=== PATIENT | male | born 1970 | race Two or more races ===

== ENCOUNTER 2016-04-22 15:38 | Emergency (ER) | payer OTHER ==
[2016-04-22 15:54] VITALS: RESP 16; TEMP 97.3; O2SAT 95
--- NOTE | 2016-04-22 15:56 | EDPHY ---
H & P Stated Complaint: CP STARTING THIS am Time Seen by Provider: 04/22/16 15:56 - Personal History Current Tetanus Diphtheria and Acellular Pertussis (TDAP): No - Medical/Surgical History Hx Asthma: No Hx Chronic Respiratory Disease: No Hx Diabetes: No Hx Cardiac Disease: No Hx Renal Disease: No Hx Cirrhosis: No Hx Alcoholism: No Hx HIV/AIDS: No Hx Splenectomy or Spleen Trauma: No Other PMH: HTN - Social History Smoking Status: Current some day smoker Constitutional: Initial Vital Signs Temperature (C) 36.3 C 04/22/16 15:52 Heart Rate 84 04/22/16 15:52 Respiratory Rate 16 04/22/16 15:52 Blood Pressure 151/89 H 04/22/16 15:52 O2 Sat (%) 95 04/22/16 15:52 O2 Delivery Mode Room Air Allergies/Adverse Reactions: No Known Allergies Allergy (Unverified 01/02/15 00:13) Home Medications: Medication Instructions Recorded Bp Med 04/22/16 Medical Decision Making ED Course/Re-evaluation: CHIEF COMPLAINT: Chest pain HISTORY OF PRESENT ILLNESS: This patient is a 45 year old male who was referred to the Emergency Department by his primary care provider, Dr. Jacques, for acute chest pain beginning when he awoke this morning. He describes his pain as centralized, "hot and achy," and gradually increasing in severity over time. He describes feeling generally uncomfortable but denies lightheadedness, nausea, shortness of breath, or any additional complaints. He describes one prior episode of similar pain over one year ago where he was worked up here in this facility; he reports normal testing at that time and has not had any additional cardiac testing. Denies any pertinent medical history. The patient speaks [place]ian conversationally; specific details difficult to interpret given mild language barrier. REVIEW OF SYSTEMS: A 10 point review of systems was performed and is negative with the exception of the elements mentioned in the history of present illness. PHYSICAL EXAM: HR 84, BP 151/89, O2 Sat 95, RR 16. Temp noted General Appearance: Alert, well hydrated, appropriate, and non-toxic appearing. Head: Atraumatic without scalp tenderness or obvious injury Eyes: Pupils equal, round, reactive to light and accommodation, EOMI, no trauma , no injection. Ears: Clear bilaterally, no perforation, normal landmarks Nose: Atraumatic, no rhinorrhea, clear. Throat: There is no erythema or exudates, no lesions, normal tonsils, mucus membranes moist. Neck: Supple, 2+ carotid upstroke, nontender, no lymphadenopathy. Respiratory: No retractions, no distress, no wheezes, and no accessory muscle use. Lungs are clear to auscultation bilaterally. Cardiovascular: Regular rate and rhythm, no murmurs, rubs, or gallops. Bilateral carotid, radial, dorsalis pedis, and posterior tibial pulses intact. Good capillary refill all extremities. Gastrointestinal: Abdomen is soft, nontender, non-distended, no masses, no rebound, no guarding, no peritoneal signs. Musculoskeletal: Normal active ROM of all extremities, atraumatic. Neurological: Alert, appropriate, and interactive. The patient has normal DTRs and non-focal cranial nerves, motor, sensory, and cerebellar exam. Skin: No rashes, good turgor, no nodules on palpation. Past medical history: Denies. Family history: Hypertension in family; no diabetes, no CAD. Social history: Smoked 3-4 cigarettes daily. DIAGNOSTICS/PROCEDURES/CRITICAL CARE TIME: EKG INTERPRETATION: The 12 lead EKG was interpreted by myself: Sinus rhythm, rate 89. No ischemic changes. See hard copy and/or "tracemaster" electronic copy for interpretation. CHEST X-RAY: Study: X-ray of the chest Indication: Chest pain Results: X-ray of the chest was obtained. The results of the study are: normal. The study was read by the radiologist, Dr. Kel Feliz. I viewed the images myself on the PACS system. DIFFERENTIAL DIAGNOSIS: The differential diagnosis for the patient's chest pain included but was not limited to myocardial ischemia, pulmonary embolus, chest wall pain, pleural inflammation, and pulmonary infectious causes. MEDICAL DECISION MAKING: This patient is a 45 year old male without any significant medical history who presents complaining of centralized chest pain beginning when he awoke this morning and increasing in severity over time. Risk factors for cardiac etiology include daily smoking and hypertension in family; it is unclear if there is CAD in family. He reports no associated factors; denies dyspnea, diaphoresis, nausea , or pain radiation. Will proceed with full cardiac work-up, including EKG, chest x-ray, and labs including Troponin. 1603: 324mg PO Asprin administered. 1700: EKG is normal. Labs are within normal ranges; Troponin and D-dimer are both negative. Given the duration of the patient's symptoms, his Troponin is sensitive at this time. Chest x-ray is normal. I discussed these results with the patient. 1719: PO Gi Cocktail administered to address possible reflux. 1750: On reevaluation, the patient is feeling much better. His symptoms resolved immediately following the Gi Cocktail administration. Given this, my recommendation is that he is discharged home with strict return precautions as well as instructions to follow-up with his PCP to address GERD treatment. The patient expresses understands and is amenable to this plan. - Data Points Laboratory Results: Laboratory Results 04/22/16 16:25 04/22/16 16:25 04/22/16 16:25 WBC 6.41 10^3/uL (3.80-9.50) RBC 5.65 10^6/uL (4.40-6.38) Hgb 18.1 H g/dL (13.7-17.5) Hct 52.8 H % (40.0-51.0) MCV 93.5 fL (81.5-99.8) MCH 32.0 pg (27.9-34.1) MCHC 34.3 g/dL (32.4-36.7) RDW 12.6 % (11.5-15.2) Plt Count 219 10^3/uL (150-400) MPV 10.3 fL (8.7-11.7) Neut % (Auto) 69.0 % (39.3-74.2) Lymph % (Auto) 22.8 % (15.0-45.0) [place] % (Auto) 6.4 % (4.5-13.0) Eos % (Auto) 0.9 % (0.6-7.6) Baso % (Auto) 0.6 % (0.3-1.7) Nucleat RBC Rel Count 0.0 % (0.0-0.2) Absolute Neuts (auto) 4.42 10^3/uL (1.70-6.50) Absolute Lymphs (auto) 1.46 10^3/uL (1.00-3.00) Absolute Monos (auto) 0.41 10^3/uL (0.30-0.80) Absolute Eos (auto) 0.06 10^3/uL (0.03-0.40) Absolute Basos (auto) 0.04 10^3/uL (0.02-0.10) Absolute Nucleated RBC 0.00 10^3/uL (0-0.01) Immature Gran % 0.3 % (0.0-1.1) Immature Gran # 0.02 10^3/uL (0.00-0.10) D-Dimer 0.35 ug/mLFEU (0.00-0.50) Sodium 140 mEq/L (134-144) Potassium 4.2 mEq/L (3.5-5.2) Chloride 106 mEq/L (97-110) Carbon Dioxide 26 mEq/l (22-31) Anion Gap 8 mEq/L (8-16) BUN 12 mg/dL (7-23) Creatinine 0.8 mg/dL (0.7-1.3) Estimated GFR > 60 Glucose 101 H mg/dL (70-100) Calcium 8.7 mg/dL (8.5-10.4) Troponin I < 0.012 ng/mL (0-0.034) NT-Pro-B Natriuret Pep 42 pg/mL (0-125) Medications Given: Discontinued Medications Aspirin (Aspirin) 324 mg PO EDNOW ONE Stop: 04/22/16 16:04 Last Admin: 04/22/16 16:16 Dose: 324 mg Miscellaneous Medication (Gi Cocktail) 55 ml PO EDNOW ONE Stop: 04/22/16 17:20 Last Admin: 04/22/16 17:34 Dose: 55 ml Departure - Departure Disposition: Home, Routine, Self-Care Clinical Impression: GERD (gastroesophageal reflux disease) Qualifiers: Esophagitis presence: without esophagitis Qualifier Code: (K21.9) Gastro- esophageal reflux disease without esophagitis Condition: Good Instructions: Gastroesophageal Reflux Disease (ED) Additional Instructions: 1. Call to schedule an appointment for reevaluation by your primary care provider within 3-5 days to discuss treatment of your GERD. 2. Return to the Emergency Department immediately for repeat chest pain, pain that radiates to your arm, neck or jaw, shortness of breath, nausea or vomiting , or other serious concerns. Referrals: Patrice Jacques MD [Primary Care Provider] - As per Instructions Report Scribed for: Hugh Gary Report Scribed by: Camille Chinchilla Date of Report: 04/22/16 Time of Report: 15:56
[2016-04-22] MEDS ORDERED: ASPIRIN 81 MG CHEWABLE TAB PO ONE (16:03)
--- NOTE | 2016-04-22 16:05 | CPEKG ---
Heart Rate: 89 RR Interval: 674 P-R Interval: 160 QRSD Interval: 94 QT Interval: 352 QTC Interval: 429 P [place] [employer]: 58 QRS [employer]: 54 T Wave [employer]: 38 EKG Severity - NORMAL ECG - EKG Impression: SINUS RHYTHM Electronically Signed By: Hugh Gary 22-Apr-2016 23:03:09
--- NOTE | 2016-04-22 16:24 | DX ---
Chest, PA and Lateral History: Chest pain. Findings: Lungs clear. Heart normal. No pneumothorax or pleural effusion. EKG leads overlie the chest . No skeletal abnormality identified. Impression: No source for chest pain identified.
[2016-04-22 16:37] LABS: % IMMATURE GRANULYOCYTES 0.3 % (0.0-1.1); ABSOLUTE IMMATURE GRANULOCYTES 0.02 10^3/uL (0.00-0.10); ADD DIFF? NO; ADD MORPH? NO; ADD SCAN? NO; ATYPICAL LYMPHOCYTE FLAG 10 (0-99); FRAGMENT RBC FLAG 0 (0-99); HEMATOCRIT 52.8 % (40.0-51.0); HEMOGLOBIN 18.1 g/dL (13.7-17.5); LEFT SHIFT FLG 0 (0-99); LIPEMIA HEMOLYSIS FLAG 90 (0-99); MEAN CELL HEMOGLOBIN CONCENTR. 34.3 g/dL (32.4-36.7); MEAN CELL VOLUME 93.5 fL (81.5-99.8); MEAN PLATELET VOLUME 10.3 fL (8.7-11.7); PLATELET CLUMPS FLAG 0 (0-99); PLATELET COUNT 219 10^3/uL (150-400); RED BLOOD CELL COUNT 5.65 10^6/uL (4.40-6.38); RED CELL DISTRIBUTION WIDTH 12.6 % (11.5-15.2)
[2016-04-22 16:56] LABS: ANION GAP 8 mEq/L (8-16); CALCIUM 8.7 mg/dL (8.5-10.4); CARBON DIOXIDE 26 mEq/l (22-31); CHLORIDE 106 mEq/L (97-110); CREATININE 0.8 mg/dL (0.7-1.3); GLOMERULAR FILTRATION RATE > 60; GLUCOSE 101 mg/dL (70-100); POTASSIUM 4.2 mEq/L (3.5-5.2); SODIUM 140 mEq/L (134-144)
[2016-04-22 17:08] LABS: TROPONIN I < 0.012 ng/mL (0-0.034)
[2016-04-22] MEDS ORDERED: MAALOX/LIDO/HYOSC GI COCKTAIL 55 ML BOTTLE PO ONE (17:19)
[2016-04-22 18:32] VITALS: BP 151/100; PULSE 77
== END 2016-04-22 18:31 | disposition home or self-care (01) ==
DX: K21.9 Gastro-esophageal reflux disease without esophagitis (principal); I10 Essential (primary) hypertension; F17.210 Nicotine dependence, cigarettes, uncomplicated

== ENCOUNTER → 2016-06-01 | Outpatient (CLI) | payer OTHER | LOC: BMCIMAGING 11:23 | PROVIDERS: ATTEND Podiatrist Foot & Ankle Surgery | DX: M21.962 Unspecified acquired deformity of left lower leg (principal) ==

== ENCOUNTER 2017-09-27 20:36 | Emergency (ER) | payer OTHER ==
--- NOTE | 2017-09-27 21:56 | EDPHY ---
H & P Stated Complaint: bp 148/98 tonight, dizzy off and on, quinn and tightness in back Time Seen by Provider: 09/27/17 21:56 HPI/ROS: HPI CHIEF COMPLAINT: High blood pressure. HISTORY OF PRESENT ILLNESS: 47-year-old male, has a history of hypertension, takes valsartan, he has noticed over the past 48 hr blood pressures been running high he reports his blood pressures been high at 148/86. This is concerning to him as he states his blood pressure usually runs in the 120s over 70s. He denies any significant chest pain or shortness of breath. Patient states that for the past 2 days his blood pressure being high. He has been taking his valsartan. He states 2 months ago he had a medication change. He reports his medical history is hypertension. Denies history of cardiovascular disease or CVA. Past Medical History: Hypertension Past Surgical History: Denies any recent surgery Social History: Denies daily use of drugs alcohol tobacco. Family History: Noncontributory ROS REVIEW OF SYSTEMS: A comprehensive 10 point review of systems is otherwise negative aside from elements mentioned in the history of present illness. Exam Constitutional appears well nontoxic no acute distress, triage nursing summary reviewed, vital signs reviewed, awake/alert. Vital signs noted at triage hypertensive. Eyes normal conjunctivae and sclera, EOMI, PERRLA. HENT normal inspection, atraumatic, moist mucus membranes, no epistaxis, neck supple/ no meningismus, no raccoon eyes. Respiratory clear to auscultation bilaterally, normal breath sounds, no respiratory distress, no wheezing. Cardiovascular rate normal, regular rhythm, no murmur, no edema, distal pulses normal. Gastrointestinal soft, non-tender, no rebound, no guarding, normal bowel sounds, no distension, no pulsatile mass. Genitourinary no CVA tenderness. Musculoskeletal no midline vertebral tenderness, full range of motion, no calf swelling, no tenderness of extremities, no meningismus, good pulses, neurovascularly intact. Skin pink, warm, & dry, no rash, skin atraumatic. Neurologic awake, alert and oriented x 3, AAOx3, moves all 4 extremities equally, motor intact, sensory intact, CN II-XII intact, normal cerebellar, normal vision, normal speech. Psychiatric normal mood/affect. Heme/Lymph/Immune no lymphadenopathy. Differential Diagnosis: Includes but is not limited to in a particular order hypertension urgency, hypertensive emergency, end-organ damage, anxiety Medical Decision Making: Plan for this patient EKG, basic blood work, monitor blood pressure closely here in the emergency room. Check troponin. Re- evaluate. Re-evaluation: EKG interpretation by me on record in [facility] system. Impression time of EKG 2200: Sinus rhythm rate of 69, LVH. No acute ischemia. Blood pressure re-evaluation at 11:04 p.m. 121/91. Patient resting comfortably no acute distress at this time. EKG interpretation by me on record in [employer] system. Impression time of repeat EKG 06/06/2054, sinus rhythm rate of 65 LVH present. But no acute ischemia. Unchanged from previous EKG. Repeat troponin negative. 0.00. Source: Patient - Personal History Current Tetanus/Diphtheria Vaccine: Unsure - Medical/Surgical History Hx Asthma: No Hx Chronic Respiratory Disease: No Hx Diabetes: No Hx Cardiac Disease: No Hx Renal Disease: No Hx Cirrhosis: No Hx Alcoholism: No Hx HIV/AIDS: No Hx Splenectomy or Spleen Trauma: No Other PMH: HTN - Social History Smoking Status: Current some day smoker Constitutional: Initial Vital Signs Temperature (C) 36.2 C 09/27/17 20:42 Heart Rate 71 09/27/17 20:42 Respiratory Rate 18 09/27/17 20:42 Blood Pressure 170/110 H 09/27/17 20:42 O2 Sat (%) 96 09/27/17 20:42 O2 Delivery Mode Room Air Allergies/Adverse Reactions: No Known Allergies Allergy (Unverified 01/02/15 00:13) Home Medications: Medication Instructions Recorded Bp Med 04/22/16 Famotidine [Pepcid 20 MG (OTC)] 20 mg PO DAILY #30 tab 04/22/16 Medical Decision Making - Diagnostics Imaging Results: Imaging Impressions Chest X-Ray 09/27/17 22:00 Impression: 1. No acute pulmonary disease. 2. Consider chest two views when the patient's medical condition permits. - Data Points Laboratory Results: Laboratory Results 09/27/17 22:02 09/27/17 22:02 09/27/17 09/27/17 09/27/17 22:20 22:02 22:02 WBC RBC Hgb Hct MCV MCH MCHC RDW Plt Count MPV Neut % (Auto) Lymph % (Auto) [place] % (Auto) Eos % (Auto) Baso % (Auto) Nucleat RBC Rel Count Absolute Neuts (auto) Absolute Lymphs (auto) Absolute Monos (auto) Absolute Eos (auto) Absolute Basos (auto) Absolute Nucleated RBC Immature Gran % Immature Gran # PT 14.1 SEC SEC (12.0-15.0) INR 1.07 (0.83-1.16) APTT 27.2 SEC SEC (23.0-38.0) Sodium 135 mEq/L mEq/L (135-145) Potassium 3.8 mEq/L mEq/L (3.3-5.0) Chloride 101 mEq/L mEq/L (97-110) Carbon Dioxide 27 mEq/l mEq/l (22-31) Anion Gap 7 mEq/L L mEq/L (8-16) BUN 11 mg/dL mg/dL (7-23) Creatinine 0.8 mg/dL mg/dL (0.7-1.3) Estimated GFR > 60 Glucose 91 mg/dL mg/dL (70-100) Calcium 10.2 mg/dL mg/dL (8.5-10.4) Magnesium 2.1 mg/dL mg/dL (1.6-2.3) Total Bilirubin 1.2 mg/dL mg/dL (0.1-1.4) Conjugated Bilirubin 0.3 mg/dL mg/dL (0.0-0.5) Unconjugated Bilirubin 0.9 mg/dL mg/dL (0.0-1.1) AST 34 IU/L IU/L (17-59) ALT 46 IU/L IU/L (21-72) Alkaline Phosphatase 73 IU/L IU/L (38-126) POC Troponin I 0.01 ng/mL ng/mL (0.00-0.08) NT-Pro-B Natriuret Pep 36 pg/mL pg/mL (0-125) Total Protein 8.0 g/dL g/dL (6.3-8.2) Albumin 4.7 g/dL g/dL (3.5-5.0) Lipase 162 IU/L IU/L (23-300) 09/27/17 22:02 WBC 6.90 10^3/uL 10^3/uL (3.80-9.50) RBC 5.56 10^6/uL 10^6/uL (4.40-6.38) Hgb 17.4 g/dL g/dL (13.7-17.5) Hct 50.2 % % (40.0-51.0) MCV 90.3 fL fL (81.5-99.8) MCH 31.3 pg pg (27.9-34.1) MCHC 34.7 g/dL g/dL (32.4-36.7) RDW 12.3 % % (11.5-15.2) Plt Count 208 10^3/uL 10^3/uL (150-400) MPV 9.6 fL fL (8.7-11.7) Neut % (Auto) 48.5 % % (39.3-74.2) Lymph % (Auto) 39.0 % % (15.0-45.0) [place] % (Auto) 7.4 % % (4.5-13.0) Eos % (Auto) 4.1 % % (0.6-7.6) Baso % (Auto) 0.7 % % (0.3-1.7) Nucleat RBC Rel Count 0.0 % % (0.0-0.2) Absolute Neuts (auto) 3.35 10^3/uL 10^3/uL (1.70-6.50) Absolute Lymphs (auto) 2.69 10^3/uL 10^3/uL (1.00-3.00) Absolute Monos (auto) 0.51 10^3/uL 10^3/uL (0.30-0.80) Absolute Eos (auto) 0.28 10^3/uL 10^3/uL (0.03-0.40) Absolute Basos (auto) 0.05 10^3/uL 10^3/uL (0.02-0.10) Absolute Nucleated RBC 0.00 10^3/uL 10^3/uL (0-0.01) Immature Gran % 0.3 % % (0.0-1.1) Immature Gran # 0.02 10^3/uL 10^3/uL (0.00-0.10) PT INR APTT Sodium Potassium Chloride Carbon Dioxide Anion Gap BUN Creatinine Estimated GFR Glucose Calcium Magnesium Total Bilirubin Conjugated Bilirubin Unconjugated Bilirubin AST ALT Alkaline Phosphatase POC Troponin I NT-Pro-B Natriuret Pep Total Protein Albumin Lipase Medications Given: Discontinued Medications Sodium Chloride (Ns) 1,000 mls @ 0 mls/hr IV EDNOW ONE; Wide Open PRN Reason: Protocol Stop: 09/27/17 22:01 Last Admin: 09/27/17 22:52 Dose: 1,000 mls Point of Care Test Results: Chemistry 09/27/17 22:20 POC Troponin I 0.01 ng/mL ng/mL (0.00-0.08) Departure - Departure Disposition: Home, Routine, Self-Care Clinical Impression: Hypertension Qualifiers: Hypertension type: essential hypertension Qualified Code(s): I10 - Essential ( primary) hypertension Condition: Good Instructions: Hypertension (ED) Additional Instructions: 1. Follow up with your Primary Care Doctor. 2. Return to the emergency room if you have worsening blood pressure chest pain or shortness of breath. Referrals: Patrice Jacques MD [Primary Care Provider] - As per Instructions
[2017-09-27] MEDS ORDERED: NS 1,000 ML IV ONE (22:00)
--- NOTE | 2017-09-27 22:03 | CPEKG ---
Heart Rate: 69 RR Interval: 870 P-R Interval: 144 QRSD Interval: 98 QT Interval: 388 QTC Interval: 416 P [place]: 42 QRS [place]: 52 T Wave [place]: 51 EKG Severity - ABNORMAL ECG - EKG Impression: SINUS RHYTHM EKG Impression: PROBABLE LEFT VENTRICULAR HYPERTROPHY Electronically Signed By: Jordan Raphael 28-Sep-2017 07:33:00
[2017-09-27 22:10] LABS: PLATELET COUNT 208 10^3/uL (150-400)
[2017-09-27 22:38] LABS: INR 1.07 (0.83-1.16); PROTIME(PATIENT) 14.1 SEC (12.0-15.0)
--- NOTE | 2017-09-27 23:56 | CPEKG ---
Heart Rate: 65 RR Interval: 923 P-R Interval: 156 QRSD Interval: 96 QT Interval: 420 QTC Interval: 437 P [place]: 45 QRS [place]: 51 T Wave [place]: 36 EKG Severity - NORMAL ECG - EKG Impression: SINUS RHYTHM Electronically Signed By: Jordan Raphael 28-Sep-2017 07:33:00
[2017-09-28 00:19] VITALS: BP 126/85
== END 2017-09-28 00:19 | disposition home or self-care (01) ==
DX: I10 Essential (primary) hypertension (principal); E86.9 Volume depletion, unspecified; F17.200 Nicotine dependence, unspecified, uncomplicated
CPT/HCPCS: 84484-PO